=== PATIENT | female | born 1965 | race Asian ===

== ENCOUNTER → 2019-04-10 09:02 | Outpatient (CLI) | payer OTHER, SELFPAY ==
--- NOTE | 2019-04-10 09:10 | MM_ITS ---
PROCEDURE: MM DIG SCREENING MAMM BI W/CAD CLINICAL INDICATION: screening xmg COMPARISON: [facility] DIG MAMM-BILATERAL ADD VIEWS from 09/18/2010 [facility] DIG MAMM-SCREEN DONNIE from 07/31/2012 [facility] DIG MAMM-SCREEN DONNIE from 10/11/2013 TECHNIQUE: Standard CC and MLO images and 3D Tomosynthesis was obtained. R2 CAD reviewed. FINDINGS: The breasts are very dense. There are unchanged scattered and loosely clustered microcalcifications in both breasts. There are no new masses or suspicious clustered microcalcifications to suggest malignancy. IMPRESSION: BI-RAD Category: 2 benign findings FOLLOW-UP: 1 year follow-up exam is recommended. (A letter has been sent to the patient regarding results of the study.) Dictated by: Rad Lares 04/10/2019 18:02 Electronically signed by Rad Lares in [place] 04/10/2019 18:02
== END ==
PROVIDERS: PCP Family Medicine; Referring Provider Nurse Practitioner Obstetrics & Gynecology; Visit Provider Nurse Practitioner Obstetrics & Gynecology
DX: Z12.31 Encounter for screening mammogram for malignant neoplasm of breast (principal)
CPT/HCPCS: 77063; 77067

== ENCOUNTER → 2020-06-30 15:05 | Outpatient (CLI) | payer BC, SELFPAY ==
--- NOTE | 2020-06-30 15:08 | MM_ITS ---
PROCEDURE: MM DIG SCREENING MAMM BI W/CAD Digital Breast Tomosynthesis Included CLINICAL INDICATION: screening xmg COMPARISON: MG MM DIG SCREENING MAMM BI W/CAD from 04/10/2019 TECHNIQUE: Standard CC and MLO images and 3D Tomosynthesis was obtained. R2 CAD reviewed. FINDINGS: The breasts are heterogeneously dense, may obscure small masses. No dominant mass lesion, suspicious calcification or architectural distortion. Benign appearing calcifications are noted bilaterally. IMPRESSION: BI-RAD Category: 2 Benign Finding(s) FOLLOW-UP: 1YR 1 Year Follow-up (A letter has been sent to the patient regarding results of the study.) Dictated by: Michelle Avery 07/02/2020 08:31 Michelle Avery in [place] 07/02/2020 08:31
== END ==
PROVIDERS: PCP Family Medicine; Visit Provider Nurse Practitioner Obstetrics & Gynecology
DX: Z12.31 Encounter for screening mammogram for malignant neoplasm of breast (principal)
CPT/HCPCS: 77063; 77067

== ENCOUNTER → 2021-10-05 12:59 | Outpatient (CLI) | payer OTHER, SELFPAY ==
--- NOTE | 2021-10-05 13:14 | MM_ITS ---
PROCEDURE INFORMATION: Exam: MG Bilateral Screening 3D Mammography Exam date and time: 10/05/2021 1:09 PM Age: 55 years old Clinical indication: Screening. No family history of breast cancer. TECHNIQUE: Imaging protocol: Bilateral Screening tomosynthesis and 2D mammography including computer-aided detection (CAD) when performed. COMPARISON: 1. MG MM DIG SCREENING MAMM BI W/CAD 06/30/2020 3:41 PM 2. MG MM DIG SCREENING MAMM BI W/CAD 04/10/2019 9:33 AM 3. MG [facility] DIG MAMM-SCREEN DONNIE 10/11/2013 9:59 AM 4. MG [facility] DIG MAMM-SCREEN DONNIE 07/31/2012 8:30 AM FINDINGS: MAMMOGRAPHY: Breast composition: The breasts are heterogeneously dense, which may obscure small masses. Mass: None. Architectural distortion: None. Calcifications: No suspicious calcifications. Asymmetric density: None. Skin thickening: None. Axillary adenopathy: None. IMPRESSION: No mammographic evidence of malignancy. Annual screening is recommended unless otherwise clinically indicated. ASSESSMENT: BI-RADS Category 1: Negative
== END ==
PROVIDERS: PCP Family Medicine; Visit Provider Nurse Practitioner Obstetrics & Gynecology
DX: Z12.31 Encounter for screening mammogram for malignant neoplasm of breast (principal)
CPT/HCPCS: 77063; 77067